=== PATIENT | male | born 1975 | race Caucasian/White ===

== ENCOUNTER 2023-08-16 11:01 | Outpatient (CLI) | payer OTHER, SELFPAY ==
--- NOTE | ~2023-08-16 | XR_ITS ---
EXAMINATION: XR abdomen/kub 1V DATE: 08/16/2023 11:22 INDICATION: Calculus of kidney. TECHNIQUE: A supine view of the abdomen on 2 radiographs was obtained. COMPARISON: CT abdomen and pelvis 04/03/2012 FINDINGS: There are no dilated loops of bowel. There is a phlebolith in right pelvis. There are 4 mm and 3 mm stones in left kidney. IMPRESSION: 1. Left kidney stones. Reviewed, dictated and finalized at location A. IMPRESSION: 1. Left kidney stones.
== END 2023-08-16 11:02 | disposition home or self-care (01) ==
LOC: ANHIMG 11:09
PROVIDERS: Visit Provider Urology
DX: N20.0 Calculus of kidney (principal)
CPT/HCPCS: 74018

== ENCOUNTER 2023-12-07 01:19 | Day surgery (SDC) | payer OTHER, SELFPAY ==
[2023-11-28 13:17] VITALS: BMI 25.0
--- NOTE | 2023-11-28 13:18 | PC.NURSE ---
Report to the Outpatient Waiting Room, entrance under the green pavilion located off [facility], at time _0600_ on date _[id number]_. Planned Procedure Time: _0730_. Time changes happen often and if your time is changed the preop area will call you the afternoon before. - You and your visitor will be asked to self-screen and do not enter if you have any COVID symptoms. - A mask is optional within the hospital at this time. Patients may have clear liquids (water, carbonated beverages, clear teas, apple juice) until 3 hours prior to surgery with a maximum of 20 ounces. - No food from midnight until time of surgery Take the following medications with a SIP of water the morning of surgery: ___None DO NOT STOP ANY OF YOUR OTHER PRESCRIPTION MEDICATIONS PRIOR TO SURGERY ?EXCEPT THE FOLLOWING Medications to discontinue per physician None Date to take last dose Please no make-up, nail latvian, hairspray, perfume, deodorant, or body powder the day of surgery. No jewelry (including any body piercings) or valuables the day of surgery, leave them at home. Please take a shower or bath the night before, or the morning of, surgery with an antibacterial soap. Wear comfortable, loose fitting clothing. - Jewelry must be removed prior to entering the operating room. Rings and piercings that are not removed may be cut off. - The hospital will not accept responsibility for valuables. - Please leave all valuables, including medications, at home the day of surgery. If you are going home after surgery, a licensed mobile lounge driver must drive you home. - NO public transportation without another adult if you receive anesthesia. - We recommend that an adult stay with you for 24 hours following discharge. - We also recommend that you do not drive, make important decision, drink alcoholic beverages, or take any drugs that were not prescribed by your health care provider for at least 24 hours after your discharge time. Follow any additional instructions given to you from your surgeon. If you or anyone in your household have experienced Covid symptoms in the past week, please notify your surgeon or the nurse liaison at the phone number below for possible testing. Telephone instructions given to _Patrick and asked if any additional questions and then verbalized understanding. Patient advised to call surgeon office or pre surgery nurse liaison [phone] if any additional questions.
--- NOTE | 2023-12-06 15:42 | P.HP_ITS ---
H&P: HPI History of Present Illness Date/Time: 12/06/23 15:42 Chief Complaint: Nasal obstruction nasal congestion septal deviation turbinate hypertrophy Narrative: and procedure planned procedure Review of Systems Review of Systems: All systems reviewed & are unremarkable except as noted in HPI and below [facility] Social History Social History Smoking status: Never smoker Alcohol intake: never Substance use: current Substance use type: marijuana Other substance usage details: Daily since age 15. Has RX Living arrangements: with family Spiritual care concerns: No Meds Home Medications and Allergies Home Medications Medication Instructions Recorded Confirmed Type No Home Medications 10/02/23 11/28/23 History Allergies Allergy/AdvReac Type Severity Reaction Status Date / Time No Known Allergies Allergy Unverified 11/28/23 13:09 Exam Narrative: septal deviation turbinate hypertrophy Assessment and Plan Assessment and plan (1) Nasal obstruction: Code(s): J34.89 - Other specified disorders of nose and nasal sinuses Status: Acute Assessment and Plan: plan OR septoplasty endoscopic assisted inferior turbinate reduction bilaterally with outfracture. Risks discussed bleeding infection damage to surrounding structures need for further procedures damage tissue structure above clavicle by myself septal perforation damage to any structure induction remains anesthesia including vocal cord paralysis. Need for further procedures. Failure to resolve symptoms. Cosmetic deformity of the nose. CSF leak per day per damage change in vision total blindness. (2) Nasal septal deviation: Code(s): J34.2 - Deviated nasal septum Status: Acute (3) Acquired deviated nasal septum: Code(s): J34.2 - Deviated nasal septum Status: Acute (4) Hypertrophy of both inferior nasal turbinates: Code(s): J34.3 - Hypertrophy of nasal turbinates Status: Acute
[2023-12-07] VITALS (12 sets, daily range): BP systolic 123–173; BP diastolic 77–127; PULSE 64–93; RESP 10–20; TEMP 36.2; O2SAT 99–100
[2023-12-07] MEDS: ACETAMINOPHEN 500 MG TABLET 1000 MG PO (06:26)
[2023-12-07] MEDS: LACTATED RINGERS 1,000 ML 30 ML IV CONT ×2 (06:30→09:30)
--- NOTE | 2023-12-07 06:57 | P.PNAN_ITS ---
Anes - Initial Pre Proc Eval Procedure: Operation Date: 12/07/23 07:30 Proposed Procedures p Bilateral Inferior Turbinate Reduction with Outfracture, - Juancho Justice MD s Endoscopic Septoplasty - Juancho Justice MD Date/Time: 12/07/23 06:57 Surgeon: Juancho Justice MD Pre Op Diagnosis: septal deviation, turbinate hypertrophy Patient Data Age: 48 Gender: M Height: 1.88 m Weight: 82.2 kg Last Vital Signs Temp 36.2 C L 12/07/23 06:12 Pulse 70 12/07/23 06:12 Resp 20 12/07/23 06:12 BP 132/104 H 12/07/23 06:20 Pulse Ox 100 12/07/23 06:12 O2 Del Method Room Air 12/07/23 06:12 Allergies Allergy/AdvReac Type Severity Reaction Status Date / Time No Known Allergies Allergy Unverified 12/07/23 06:08 Home Medications Medication Instructions Recorded Confirmed Type No Home Medications 10/02/23 12/07/23 History Patient hx anesthesia problems: none Family hx anesthesia problems: none Results Review: All pre-operative results and documents have been reviewed as part of the pre- operative evaluation. FORMERLY [facility], [facility] Surgical History Surgical History (Updated 12/07/23 @ 06:57 by Dexter Madison MD) H/O lithotripsy Social History Social History Smoking status: Never smoker Alcohol intake: never Substance use: current Substance use type: marijuana Other substance usage details: Daily since age 15. Has RX Living arrangements: with family Spiritual care concerns: No Anes - Eval Final PreProcedure Day of Procedure 12/07/23 06:57 Patient weight: normal Heart: regular rate and rhythm Lungs: clear to auscultation Airway: Mallampati scale class II Neurological: alert and oriented Last oral intake: >/= 8 hours ASA classification: II Emergent: no Anesthetic plan: proceed Anesthesia type and monitoring: general ETT and standard monitoring Results Review: All pre-operative results and documents have been reviewed as part of the pre- operative evaluation. Informed Consent: The patient's anesthetic plan and its attendant risks and benefits were discussed with the patient/family/POA. Questions were solicited and answers provided to the satisfaction of the patient/family/POA.
--- NOTE | 2023-12-07 07:19 | WPDHPUPDATE1 ---
History and Physical Update Update Date/Time: 12/07/23 07:19 History and Physical has been reviewed, including an updated exam of the patient. There are NO changes in the patient's condition. Risks, benefits, and alternatives have been discussed and questions answered. Patient agrees to proceed with procedure.
[2023-12-07] MEDS: ceFAZolin 2 GM/D5W 50 ML 2 GM/50 ML BAG IVPB (07:33)
[2023-12-07] MEDS: LIDO 1%/EPINEPHRINE 1:100,000 50 ML VIAL INFILTRATE (07:45)
[2023-12-07] MEDS: OXYMETAZOLINE HCL 0.05% NAS 15 ML BTL (*BKC) 1 SPRAY NASAL (07:46)
--- NOTE | 2023-12-07 09:49 | P.OP_ITS ---
Procedure Note - Detailed Date of Procedure 12/07/23 Pre-op Diagnosis septal deviation, turbinate hypertrophy Post-op Diagnosis Same Procedure Performed endoscopic assisted septoplasty inferior turbinate reduction with outfracture bilaterally Surgeon Juancho Justice MD Anesthesia General Indications see above Findings severely rightward deviated septum large turbinates. Excellent result postoperatively. Patient tolerated the procedure well minimal bleeding tear on the right side over spur none on the left side. Description of Procedure Patient identified consent verified preop. Patient to the operating. Time- out performed. General anesthesia induced endotracheal tube secured. Patient prepped draped position procedure confirmed 2nd time-out performed. Total 15 cc 1% lidocaine [id number] parts epinephrine checked bilateral nasal septum inferior turbinates. Amrik incision made left side. Left made with 15 blade. Left nasal septal flap elevated 7 Guinean suction. No perforation. Osteotome uti lized to cross over right nasal septal flap elevated perforation and tear over the spur. Again on the left side. Deviated septum removed Doug shot Steffen forceps Mina Guallpa forceps and osteotome. Septum watched out FloSeal placed no bleeding closed with 3 sorry for interrupted 5 0 fast gut sutures. Fifteen blade stab anteriorly so 15 blade incision 15 blade utilized to make a stab incision in the anterior portion of the inferior turbinates. Microdebrider which was a Freedom 2.5 mm utilized to perform turbinate reduction. No tears. Outfractured [place] elevator. FloSeal placed. Minimal bleeding about 10-15 cc the entire procedure. Barrios splints placed sutured anteriorly using 3-0 mattress nylon suture. No complications. I performed all dictated portions procedure care the patient back to Anesthesiology patient taken to PACU. Estimated Blood Loss 15 Drains No Packing No Pathology None sent Complications No immediate complications Condition Stable Disposition PACU [facility] Billing Surgery - Charge Forward: Surgery Billing
[2023-12-07] MEDS: fentaNYL CITRATE INJ (*CRX) 100 MCG/2 ML VIAL 25 MCG IV PUSH ×2 (09:52→10:02)
[2023-12-07] MEDS: ONDANSETRON INJ 4 MG/2 ML VIAL IV PUSH (10:20)
[2023-12-07] MEDS: oxyCODONE HCL (*CRX) 5 MG TAB IR PO (10:45)
== END 2023-12-07 11:35 | disposition home or self-care (01) ==
PROVIDERS: Visit Provider Otolaryngology
PROC: (CPT 30520; principal; 2023-12-07 07:30)
PROC: (CPT 30520; 2023-12-07 07:30)
DX: J34.2 Deviated nasal septum (principal); J34.3 Hypertrophy of nasal turbinates; F12.90 Cannabis use, unspecified, uncomplicated
CPT/HCPCS: 30520; 30140; A9270; J0690; J1100; J1170; J2250; J2405; J2704; J3010; J7050; J7120

== ENCOUNTER 2024-10-14 10:48 | Day surgery (SDC) | payer OTHER, SELFPAY ==
[2024-10-14] VITALS (13 sets, daily range): BP systolic 103–164; BP diastolic 54–112; PULSE 56–97; RESP 13–22; TEMP 36.6; O2SAT 95–100
--- NOTE | ~2024-10-14 | XR_ITS ---
EXAMINATION: XR retrograde pyelo w/stent LT DATE: 10/14/2024 16:26 INDICATION: Nephrolithiasis. Retrograde left pyelogram. TECHNIQUE: 6 fluoroscopic images of the abdomen and pelvis were obtained during procedure performed opal Adler. Radiologist was not present for the imaging or procedure. The amount of fluoroscopy t rafael used during this procedure was 0.5 minutes. Total DAP was 0.348 mGym^2. COMPARISON: CT dated 10/14/2024 FINDINGS: Images demonstrate a wire is advanced through the left ureter into the left renal collecting system. The stone at the left ureteropelvic junction can be seen along side the wires slightly lateral to the left transverse process of L3. Subsequent images demonstrate a catheter advanced to near the left ur eteropelvic junction. Contrast injection demonstrates mild left hydronephrosis. Following the initial image the left ureteral stone: Be visualized and has likely either been extracted or has refluxed in to the collecting system and is obscured by contrast. Final image demonstrates placement of a left in traureteral stent with loops formed in the left renal pelvis. IMPRESSION: 1. Stone at the left ureteropelvic junction which is not identified on the final image and has either been extracted or refluxed into the collecting system and obscured by contrast. See procedure note f or further detail. 2. Placement of a left intraureteral stent with proximal loop in expected position at the left renal pelvis. Reviewed, dictated and finalized at location A. IMPRESSION: 1. Stone at the left ureteropelvic junction which is not identified on the laurie l image and has either been extracted or refluxed into the collecting system an d obscured by contrast. See procedure note for further detail. 2. Placement of a left intraureteral stent with proximal loop in expected posit ion at the left renal pelvis.
--- NOTE | ~2024-10-14 | XR_ITS ---
EXAM: XR abdomen/kub 1V DATE: 10/14/2024 15:11 HISTORY: KID STONE SEEN ON CT . COMPARISON: 08/16/2023; CT abdomen pelvis 10/14/2024. FINDINGS: Clear lung bases. Normal bowel gas pattern. No organomegaly. 5 mm calcification over the l eft L4 transverse process, corresponding to the ureteral stone seen in the prior CT. Bilateral puncta te renal calcifications. Regional bones and soft tissues normal for age. IMPRESSION: 5 mm left ureteral stone. Bilateral nephrolithiasis. Reviewed, dictated and finalized at location K.
--- NOTE | ~2024-10-14 | CT_ITS ---
EXAMINATION: CT abdomen pelvis wo con DATE: 10/14/2024 12:15 INDICATION: Left lower quadrant and flank pain. TECHNIQUE: Computed tomography (CT) of the abdomen and pelvis was performed without intravenous contr ast. Automated exposure control and iterative reconstruction technique were employed. The dose-length product was 339.86 mGy-cm. COMPARISON: None FINDINGS: Mild discoid atelectasis in the right lower lobe. Heart size is normal. No pericardial or pleural eff usion. Liver, gallbladder, spleen, pancreas, bilateral adrenal glands are normal. Bilateral nephrolit hiasis including 5 stones the right kidney measuring up to 2-3 mm and 3 stones in the left kidney als o measuring up to 2-3 mm. There is an obstructing 4-5 lumbar stone at the proximal left ureter with m ild left hydronephrosis. No other ureteral stones. Bladder is normal. Mild diverticulosis with sigmoi d colon predominance without adjacent from trace stranding to suggest diverticulitis. There is wall t hickening in the proximal colon suspicious for colitis which could be infectious or inflammatory in e tiology. Normal appendix. No bowel obstruction. No free intraperitoneal gas or fluid. No pathological ly enlarged abdominal or pelvic lymphadenopathy. Small fat-containing umbilical hernia. 5 mm retrolis thesis L5 on S1. Severe disc height loss with degenerative endplate changes at L5-S1. IMPRESSION: 1. Bilateral nephrolithiasis with obstructing 4 to 5 mm proximal left ureteral stone with mild left h ydronephrosis. 2. Mild wall thickening in the proximal colon suggestive of colitis which could be infectious or infl ammatory in etiology. Reviewed, dictated and finalized at location A. IMPRESSION: 1. Bilateral nephrolithiasis with obstructing 4 to 5 mm proximal left ureteral stone with mild left hydronephrosis. 2. Mild wall thickening in the proximal colon suggestive of colitis which could be infectious or inflammatory in etiology.
--- OUTSIDE RECORDS SUMMARY | 2024-10-14 11:08 | XMS_ITS | Referral Summary ---
Author Organization [facility] [address] [place] Address [address] [place] [address] Care Team Providers Care Security Site Supervisor Name Role Phone No, Physician Primary Care Provider [phone] Encounters Date Type Department Care Team Description 09/26/2024 8:45 AM CDT Office Visit [facility] Orthopaedic Surgery [address] [place] [address] 1st Floor [address] [place] [phone] Dipika Mayberry NP Myofascial pain (Primary Dx) 09/17/2024 Telephone [facility] Orthopaedic Surgery [address] [place] [address] Floor [address] [place] [phone] Gretchen Ryan RMA 09/10/2024 1:28 PM CDT - 09/10/2024 11:59 PM CDT Hospital Encounter [facility] Radiology at [facility] [address] [place] [id number] Chronic periscapular pain on left side; Myofascial pain; Neck pain on left side; Chronic left-sided thoracic back pain Discharge Disposition: Discharge to home or self care 09/10/2024 1:45 PM CDT Office Visit [facility] Orthopaedic Surgery [address] [place] [address] 1st [address] [place] [phone] Dipika Mayberry NP Neck pain on left side (Primary Dx); Chronic periscapular pain on left side; Myofascial pain; Chronic left-sided thoracic back pain 09/04/2024 Telephone [facility] Orthopaedic Surgery [address] [place] [address] LoserGretchen RMA 08/15/2024 Orders Only [facility] Orthopaedic Surgery [address] 2[address] [place] [address] Loser Gretchen, RMA Neck pain on left side (Primary Dx); Myofascial pain from Last 3 Months Allergies No known active allergies Medications meloxicam (MOBIC) 15 mg tablet Take one daily with food 30 tablet 09/10/2024 Active Hospital, Clinic, or Other Facility Administered Medication Ordered Dose Route Frequency Start Date End Date Status BUPivacaine HCl (MARCAINE) 0.25 % (2.5 mg/mL) injection 4 mLIndications:Myofas cial pain 4 mL OTHER One-Time Injection 09/26/2024 09/26/2024 Ended lidocaine (XYLOCAINE) 10 mg/mL (1 %) injection 4 mLIndications:Admini stration of Local Anesthesia 4 mL One-Time Injection 09/26/2024 09/26/2024 Ended Active Problems Problem Noted Date Diagnosed Date Rotator cuff syndrome of left shoulder Tinea unguium 09/26/2024 Subdeltoid bursitis 09/26/2024 Adenomatous colon polyp 08/08/2019 Resolved Problems Problem Noted Date Diagnosed Date Resolved Date Winged scapula, left 12/14/2016 018 Scapular dyskinesis 12/14/2016 01/09/20 18 Immunizations Immunization Administration Dates Next Due Tdap 07/03/2013 Social History Tobacco Use Types Packs/Day Years Used Date Smoking Tobacco: Never Smokeless Tobacco: Never Alcohol Use Standard Drinks/Week Comments Yes 0 (1 standard drink = 0.6 oz pur e alcohol) social AUDIT-C Answer Date Recorded Q1: How often do you have a drink containing alcohol? Never 05/14/2023 Q2: How many drinks containi ng alcohol do you have on a typical day when you are drinking? Patient does not drink Q3: How often do you have si x or more drinks on one occasion? Never 05/14/2023 Personal Safety Answer Date Recorded Have you ever been in or are you currently in a harmful physical or emotional relationship or is someone making you feel afraid or unsafe? 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 on [place] [employer] Not on file Not on file Last Filed Vital Signs Vital Sign Reading Time Taken Comments Blood Pressure 138/96 04/09/2023 8:30 AM CONDENSER CLEANER Pulse 71 04/09/2023 8:30 AM CONDENSER CLEANER Temperature 36.4 C (97.5 F) 04/09/2023 7:49 AM CONDENSER CLEANER Respiratory Rate 18 04/09/2023 8:30 AM CONDENSER CLEANER Oxygen Saturation 87% 04/09/2023 8:30 AM CONDENSER CLEANER Inhaled Oxygen Concentration - - Weight 90.7 kg (200 lb) 09/10/2024 1:15 PM CDT Height 188 cm (6' 2 ) 09/10/2024 1:15 PM CDT Body Mass Index 25.68 09/10/2024 1:15 PM CDT Plan of Treatment Not on file Procedures Procedure Name Priority Date/Time Associated Diagnosis Comments VA INJECTION 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 TRIGGER POINT 3/> MUSCLES Routine 09/26/2024 8:45 AM CDT Myofascial pain VA INJECTION 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 TRIGGER POINT 3/> MUSCLES Routine 09/10/2024 1:45 PM CDT Myofascial pain XR SPINE CERVICAL COMPLETE 4 OR 5 VW Schedule Routine, Read Routine (OP Routine) 09/10/2024 1:33 PM CDT Chronic periscapular pain on left side Myofascial pain Neck pain on left side Chronic left-sided thoracic back pain HM COLONOSCOPY Routine 08/01/2019 from Last 3 Months or Most Recently Relevant to Health Maintenance Results * VA INJECTION 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 TRIGGER POINT 3/> MUSCLES (09/26/2024 8:45 AM CDT) Narrative Dipika Mayberry NP - 09/26/2024 8:45 AM CDT Dipika Mayberry NP 09/26/2024 8:55 AM Trigger Point Injection Performed by: Dipika Mayberry NP Authorized by: Dipika Mayberry NP Consent Given by: Patient Site marked: the procedure site was marked Consent obtained:: Verbal Site/side marked: Yes Indications: Myalgia and muscle spasm Location: L upper trapezius, L rhomboid and Other Other:: Left proximal latissimus dorsi Local anesthetic: Ethyl chloride spray Needle size: 25 G Number of muscles: 3 or more Medications: 4 mL BUPivacaine HCl 0.25 % (2.5 mg/mL); 4 mL lidocaine 10 mg/mL (1 %) Patient tolerance: Patient tolerated the procedure well with no immediate complications Dipika Mayberry DIGITAL MARKETING OFFICER IN CLINIC/BEDSIDE ORDERABLES Final Result * VA INJECTION 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 TRIGGER POINT 3/> MUSCLES (09/10/2024 1:45 PM CDT) Narrative Dipika Mayberry NP - 09/10/2024 1:45 PM CDT Dipika Mayberry NP 09/10/2024 3:21 PM Trigger Point Injection Performed by: Dipika Mayberry NP Authorized by: Dipika Mayberry NP Consent Given by: Patient Site marked: the procedure site was marked Consent obtained:: Verbal Site/side marked: Yes Indications: Muscle spasm Location: L upper trapezius, L levator scapulae, Other and L rotator cuff Other:: Left upper latissimus dorsi, left rhomboid Local anesthetic: Ethyl chloride spray Needle size: 25 G Number of muscles: 3 or more Medications: 5 mL BUPivacaine HCl 0.25 % (2.5 mg/mL); 5 mL lidocaine 10 mg/mL (1 %) Patient tolerance: Patient tolerated the procedure well with no immediate complications us Dipika Mayberry DIGITAL MARKETING OFFICER IN CLINIC/BEDSIDE ORDERABLES Final Result * X-ray cervical spine complete 4 or 5 vw (09/10/2024 1:33 PM CDT) Anatomical Region Laterality Modality Spine N/A Computed Radiogr aphy 09/10/2024 1:37 PM CDT Impressions 09/10/2024 1:37 PM CDT Mild to moderate multilevel cervical degenerative disc disease, most prominent at C3-C4. Electronically signed by: Dimas Sauceda MD Narrative 09/10/2024 1:37 PM CDT EXAMINATION: XR SPINE CERVICAL COMPLETE 4 OR 5 VW HISTORY: Cervical spondylosis, neck and left shoulder pain FINDINGS: Comparison dated 02/06/2023. Unchanged mild retrolisthesis of C3 on C4. This slightly improves with flexion and is unchanged with extension. Mild rightward deviation of the cervical spine. No fracture. No prevertebral soft tissue swelling. Moderate degenerative disc disease at C3-C4. Mild to moderate degenerative disc disease at C5-C7. Mild osseous central canal stenosis at C3-C4 and C5-C7. Procedure Note Dimas Sauceda MD - 09/10/2024 EXAMINATION: XR SPINE CERVICAL COMPLETE 4 OR 5 VW HISTORY: Cervical spondylosis, neck and left shoulder pain FINDINGS: Comparison dated 02/06/2023. Unchanged mild retrolisthesis of C3 on C4. This slightly improves with flexion and is unchanged with extension. Mild rightward deviation of the cervical spine. No fracture. No prevertebral soft tissue swelling. Moderate degenerative disc disease at C3-C4. Mild to moderate degenerative disc disease at C5-C7. Mild osseous central canal stenosis at C3-C4 and C5-C7. IMPRESSION: Mild to moderate multilevel cervical degenerative disc disease, most prominent at C3-C4. Electronically signed by: Dimas Sauceda MD Dipika Mayberry DIGITAL MARKETING OFFICER IMG XR PROCEDURES Final Resul t * COLONOSCOPY (08/01/2019) Colonoscopy Abnormal Historical Provider HEALTH MAINTENANCE Final Result from Last 3 Months or Most Recently Relevant to Health Maintenance Insurance [facility] ACCESS [facility] CHOICE PLUS [facility] CHOICE PLUS [facility] CHOICE PLUS Care Teams Security Site Supervisor Relationship Specialty Start Date End Date No, Physician PCP - General 05/14/23
--- OUTSIDE RECORDS SUMMARY | 2024-10-14 11:08 | XMS_ITS | Patient Health Record ---
Author Organization [facility] Address [address] [place] [address] Support Name Relationship Address Phone Micky Jacobsen Guarantor Unknown [phone] Allergies No Known Allergies Reason For Referral No Information Medications Medication SIG (Take, Route, Frequency, Duration) Notes Start Date End Date Status Ibuprofen *Pick strength-form from [employer] for eRX* Active Cephalexin 500 MG take 1 capsule (500 mg) by oral route every 12 hours for 10 days Oral 2 for 10 03/26/2017 Active Griseofulvin Ultramicrosize 250 MG take 2 tablets by oral route daily Oral 1 for 30 01/21/2018 Active Aleve 220 MG Oral Active Problems Problem Type SNOMED Code ICD Code Onset Dates Problem Status W/U Status Risk Notes Problem Shoulder Enthesopathy (726.10) Active confirmed Problem Subdeltoid bursitis (24227752) Subdeltoid bursitis (726.19) Active confirmed Problem Tinea unguium (554938311) Tinea unguium (B35.1) Active confirmed Problem Dermatophytosis (49367924) Dermatophytosis , unspecified (B35.9) Active confirmed Plan Of Treatment No Information Insurance Providers Payer Name Payer Address Payer Phone Subscriber Number Group Number Insured Name Patient Relationship to Insured Coverage Start Date Coverage End Date [employer] [address] [address] [place] [address] [id number] Delmar Micky Self - patient is the insured [employer] [address] [address] [place], [place] [id number] [phone] [id number] Micky Jacobsen Self - patient is the insured 7 [employer] [address] MAGGIE Carpio [id number] [phone] [id number] Micky Jacobsen Self - patient is the insured 9 DO NOT USE [id number] Micky Jacobsen Self - patient is the insured 7 [employer] [address] [address] [place] [address] [id number] Micky Jacobsen Self - patient is the insured [facility] [phone] [id number] Micky Jacobsen Self - patient is the insured Medical (General) History Hospitalization History Reason Date(Month/Year) kidney stone 2011
--- OUTSIDE RECORDS SUMMARY | 2024-10-14 11:08 | XMS_ITS | Clinical Summary ---
Author Organization [address] Address [address] [place] [phone] Care Team Providers Care Repair Manager Name Role Phone No, Physician Primary Care Provider [phone] Allergies No known active allergies Medications meloxicam [...] 12/14/2016 018 Scapular dyskinesis 12/14/2016 01/09/20 18 Encounters Date Type Department Care Team Description 09/26/2024 8:45 AM CDT Office Visit [facility] Orthopaedic Surgery [address] [facility] 1st Floor [address] [place] [address] Dipika Mayberry NP Myofascial pain (Primary Dx) 09/17/2024 Telephone [facility] Orthopaedic Surgery [address] [facility] 1st Floor [address] [place] [address] LoseGretchen mcbride, RMA 09/10/2024 1:45 PM CDT Office Visit [facility] Orthopaedic Surgery [address] [facility] 1st Floor [address] [place] [address] Dipika Mayberry NP Neck pain on left side (Primary Dx); Chronic periscapular pain on left side; Myofascial pain; Chronic left-sided thoracic back pain 09/10/2024 1:28 PM CDT - 09/10/2024 11:59 PM CDT Hospital Encounter [facility] Radiology at [facility] [address] [place] [address] Chronic periscapular pain on left side; Myofascial pain; Neck pain on left side; Chronic left-sided thoracic back pain Discharge Disposition: Discharge to home or self care 09/04/2024 Telephone [facility] Orthopaedic Surgery [address] [facility] 1st Floor [address] [place] [address] Loser Gretchen, RMA 08/15/2024 Orders Only [facility] Orthopaedic Surgery [address] [facility] 2nd Floor [address] [place] [address] Loser, Gretchen, RMA Neck pain on left side (Primary Dx); Myofascial pain from Last 3 Months Immunizations Immunization Administration Dates Next Due Tdap 07/03/2013 Surgical History Surgery Date Site/Laterality Comments COLONOSCOPY 06/04/2019 - 06/03/2020 KIDNEY STONE SURGERY 06/04/2012 - 06/03/2013 ablation Medical History Medical History Date Comments Kidney stones History of kidney problems Family History Medical History Relation Name Comments Coronary artery disease Father Hyperlipidemia Father No Known Problems Mother Coronary artery disease Paternal Grandfather Relation Name Status Comments Father Alive Mother Alive Paternal Grandfather Social History Tobacco Use Types Packs/Day Years [...] on file Legal Sex Male 12:39 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 Gender Identity Not on file Sexual Orientation Not on file 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 Not on file Not on file Obstetrics History Last Filed Vital Signs Vital Sign Reading Time Taken Comments Blood Pressure 138/96 04/09/2023 8:30 AM FIELD AUTOMOBILE ADJUSTER Pulse 71 04/09/2023 8:30 AM FIELD AUTOMOBILE ADJUSTER Temperature 36.4 C (97.5 F) 04/09/2023 7:49 AM FIELD AUTOMOBILE ADJUSTER Respiratory Rate 18 04/09/2023 8:30 AM FIELD AUTOMOBILE ADJUSTER Oxygen Saturation 87% 04/09/2023 8:30 AM FIELD AUTOMOBILE ADJUSTER Inhaled Oxygen Concentration - - Weight 90.7 kg (200 lb) 09/10/2024 1:15 PM CDT Height 188 cm (6' 2 ) 09/10/2024 1:15 PM CDT Body Mass Index 25.68 09/10/2024 1:15 PM CDT Plan of Treatment Health Maintenance Due Date Last Done Comments Hepatitis C Screening 1976 Hepatitis B Screening 1994 Regular Well Visit/Exam 18-64 1994 Depression Screening 01/09/2019 01/09/2018 DTaP/Tdap/Td Vaccine (2 - Td or Tdap) 07/03/2023 07/03/2013 Colon Cancer Screening-Colonoscopy 08/01/2024 08/01/2019 Influenza Vaccine (Season Ended) 2025 Colon Cancer Screening-CT Colonography Discontinued 08/01/2019 Colon Cancer Screening-DNA Stool Discontinued 08/01/19 20 Colon Cancer Screening-FIT Discontinued 08/01/2019 Colon Cancer Screening-Sigmoidoscopy Discontinued 08/01/2019 Pneumococcal vaccine <65 Aged Out No longer eligible based on patient's age to complete this topic Procedures Procedure Name Priority Date/Time Associated Diagnosis Comments [place] INJECTION SINGLE/BRICK MASON TRIGGER POINT 3/> MUSCLES Routine 09/26/2024 8:45 AM CDT Myofascial pain WI INJECTION SINGLE/BRICK MASON TRIGGER POINT 3/> MUSCLES Routine 09/10/2024 1:45 [...] Recently Relevant to Health Maintenance Results * [place] INJECTION SINGLE/BRICK MASON TRIGGER POINT 3/> MUSCLES (09/26/2024 8:45 AM CDT) Dipika Arora NP - 09/26/2024 8:45 AM CDT Dipika [...] with no immediate complications us Dipika Mayberry NP IN CLINIC/BEDSIDE ORDERABLES Final Result * [place] INJECTION SINGLE/BRICK MASON TRIGGER POINT 3/> MUSCLES (09/10/2024 1:45 PM CDT) Dipika Arora NP - 09/10/2024 1:45 PM CDT Dipika [...] well with no immediate complications Dipika Mayberry TECTONOPHYSICIST IN CLINIC/BEDSIDE ORDERABLES Final Result * X-ray [...] signed by: Dimas Sauceda MD Dipika Mayberry TECTONOPHYSICIST IMG XR PROCEDURES Final Resul t * COLONOSCOPY (08/01/2019) [facility] Signature Colonoscopy Abnormal Historical Provider HEALTH MAINTENANCE Final Result from Last 3 Months or Most Recently Relevant to Health Maintenance Insurance [facility] HMO/PPO Address: [address] [place] [address] [facility] Care Teams Repair Manager Relationship Specialty Start Date End Date No, Physician PCP - General 05/14/23
[2024-10-14] MEDS: MORPHINE SULFATE (*CRX) 4 MG/ML INJ IV PUSH (11:37)
--- NOTE | 2024-10-14 11:42 | ED_ITS ---
HPI - Abdominal Pain General Chief Complaint: Abdominal Pain Stated Complaint: severe abdominal pain Time Seen by Provider: 10/14/24 11:42 Source: patient and family Mode of arrival: ambulatory Limitations: no limitations History of Present Illness HPI narrative: 49 YEARS OLD WHITE MALE CAME WITH SUDDEN ONSET OF LEFT LOWER QUADRANT PAIN RADIATING TO LEFT TESTICLE AND LEFT FLANK AREA STARTED PRIOR TO ARRIVAL ASSOCIATED WITH NAUSEA AND VOMITING AND DIAPHORESIS AND RESTLESSNESS. HISTORY OF KIDNEY STONE. HE DENIES ANY FEVER OR CHILLS. Related Data Home Medications ?Medication ?Instructions ?Recorded ?Confirmed ?Last Taken ?Type No Home Medications 12/26/23 12/26/23 Unknown History Allergies Allergy/AdvReac Type Severity Reaction Status Date / Time No Known Allergies Allergy Verified 10/14/24 10:55 Review of Systems 2 Review of Systems: All systems reviewed & are unremarkable except as noted in HPI and below PMFSH Surgical History Surgical History H/O lithotripsy Social History Social History Smoking status: Never smoker Alcohol intake: never Substance use: current Substance use type: marijuana Other substance usage details: Daily since age 15. Has RX Living arrangements: with family Spiritual care concerns: No Exam 2 Narrative: GENERAL APPEARANCE: WELL-DEVELOPED, WELL-NOURISHED, RESTLESS SKIN: NORMAL COLOR HEAD: NORMOCEPHALIC, NONTRAUMATIC EYES: CLEAR CONJUNCTIVA ENT: OROPHARYNX NORMAL, EARS NORMAL, NOSE NORMAL NECK: SUPPLE, NONTENDER CHEST AND RESPIRATORY: AIRWAY PATENT, NO RESPIRATORY DISTRESS, NO ACCESSORY MUSCLE USE HEART: REGULAR RATE/RHYTHM ABDOMEN: SEVERE TENDERNESS LEFT LOWER QUADRANT AND LEFT FLANK. VASCULAR: NORMAL PERIPHERAL PULSES, NORMAL CAPILLARY REFILL. MUSCULOSKELETAL: NORMAL RANGE OF MOTION, NONTENDER BACK NEUROLOGIC: ALERT AND ORIENTED ?3, CORPORATE LOGISTICS MANAGER IS NORMAL TESTED, NO GROSS MOTOR DEFICIT Course Consultations Consultation #1: DR ADLER, CAME TO THE ED,. PLANNING TO TAKE THE PATIENT TO THE OR FOR STONE REMOVAL. Date: 10/14/24 Vital Signs Vital signs: Vital Signs Temperature 36.6 C 10/14/24 10:52 Pulse Rate 56 L 10/14/24 10:52 Respiratory Rate 20 10/14/24 10:52 Pulse Oximetry 100 10/14/24 10:52 Oxygen Delivery Room Air 10/14/24 10:52 Temperature 36.6 C 10/14/24 10:52 Pulse Rate 70 10/14/24 14:01 Respiratory Rate 15 10/14/24 14:01 Blood Pressure 115/75 10/14/24 14:01 Pulse Oximetry 96 10/14/24 14:01 Oxygen Delivery Room Air 10/14/24 10:52 MDM - Abdominal Pain MDM Narrative Medical decision making narrative: PATIENT CAME WITH LEFT LOWER QUADRANT PAIN LEFT FLANK VITAL SIGNS SHOWING PHYSICAL EXAM SHOWING RESTLESS PATIENT WITH SEVERE TENDERNESS LEFT LOWER QUADRANT AND LEFT FLANK DIFFERENTIAL DIAGNOSIS INCLUDE KIDNEY STONE, URINARY TRACT INFECTION, DIVERTICULITIS, CONSTIPATION BLOOD WORKUP TODAY INCLUDES CBC, CMP, LIPASE SHOWED WBC 10.2 CHLORIDE 108 OTHERWISE INSIGNIFICANT URINALYSIS SHOWED 3+ BLOOD CT ABDOMEN AND PELVIS WITHOUT CONTRAST SHOWED LEFT PROXIMAL URETER STONES 4-5 MM PATIENT STILL IN PAIN, RESTLESS, ADMIT TO HOSPITALIST, CONSULT UROLOGIST. Differential Diagnosis Differential diagnosis: Likely other ( ABOVE) Medical Records Attestation: I reviewed the patient's medical records. Lab Data Attestation: I reviewed the patient's lab results. 10/14/24 11:27 10/14/24 12:52 Labs: Lab Results 10/14/24 10/14/24 10/14/24 Range/Units 11:27 11:28 12:52 WBC 10.2 H (4.5-10.0) K/mm3 RBC 4.88 (4.6-6.20) M/mm3 Hgb 14.3 (14.0-18.0) g/dL Hct 44.2 (42.0-52.0) % MCV 90.6 (80-100) fl MCH 29.3 (26-34) pg MCHC 32.4 (32-36) g/dl RDW 12.6 (11.5-14.5) % Plt Count 185 (150-375) k/mm3 MPV 11.5 H (7.4-10.4) fl Immature Gran % (Auto) 0.3 (0-0.5) % Neut % (Auto) 51.8 (45.5-73.1) % Lymph % (Auto) 39.0 (18.3-44.2) % [place] % (Auto) 6.4 (2.6-8.5) % Eos % (Auto) 1.6 (0-4.4) % Baso % (Auto) 0.9 (0.2-1.2) % Lymph # (Auto) 3.96 H (0.9-3.2) K/mm3 [place] # (Auto) 0.7 H (0.1-0.6) K/mm3 Eos # (Auto) 0.2 (0-0.3) K/mm3 Baso # (Auto) 0.1 (0.0-0.1) K/mm3 Abs Immat Gran (auto) 0.03 (0.00-0.031) K/mm3 Absolute Neuts (auto) 5.3 (1.3-6.7) K/mm3 Absolute Nucleated RBC 0.000 (0.0-0.012) K/mm3 Nucleated RBC % 0.0 (0.0-0.2) % % Immature Plt Fraction 7.1 (0.9-11.2) % Sodium 140 (137-145) mmol/L Potassium 3.8 (3.4-5.0) mmol/L Chloride 108 H (98-107) mmol/L Carbon Dioxide 25 (22-30) mmol/L Anion Gap 7 (4-12) mmol/L BUN 16 (9-20) mg/dL Creatinine 0.84 (0.7-1.3) mg/dL Estim Creat Clear Calc 109 ml/min Estimated GFR > 60 (59 - ) Glucose 95 (65-110) mg/dL Calcium 8.4 (8.4-10.2) mg/dL Total Bilirubin 0.6 (0.2-1.3) mg/dL AST 21 (17-59) U/L ALT 15 (6-50) U/L Alkaline Phosphatase 79 (38-126) U/L Total Protein 7.0 (6.3-8.2) g/dL Albumin 3.8 (3.5-5.1) g/dL Lipase 95 (23-300) U/L Urine Color Yellow (Yellow) Urine Appearance Cloudy H (Clear) Urine pH 5.5 (5.0-9.0) Ur Specific [place] 1.021 (1.001-1.035) Urine Protein 1+ H (Negative) mg/dL Urine Glucose (UA) Negative (Negative) mg/dL Urine Ketones Trace H (Negative) mg/dL Ur Blood (Man) 3+ H (Negative) Urine Nitrate Negative (Negative) Urine Bilirubin Negative (Negative) Urine Urobilinogen 1.0 (<2.0) mg/dL Leukocyte Esterase Rfl Trace H (Negative) MARIA DE JESUS/UL Urine RBC 0-2 (0-2) /hpf Urine WBC 0-5 (0-3) /hpf Ur Squamous Epith Cells None seen (Few) /hpf Urine Bacteria None seen /hpf Urine Casts 0-2 Urine Mucus Present /lpf Imaging Data Radiologist's impression: ITS Impressions Abdomen/Pelvis CT 10/14/24 12:30 IMPRESSION: 1. Bilateral nephrolithiasis with obstructing 4 to 5 mm proximal left ureteral stone with mild left hydronephrosis. 2. Mild wall thickening in the proximal colon suggestive of colitis which could be infectious or inflammatory in etiology. Critical Care Time Critical Care Time Critical Care Time: Yes Total Critical Care Time: 30 Discharge Plan Discharge Clinical Impression: Kidney stone on left side Patient Disposition: Still a Patient Condition: Stable Patient Language: Maltese Prescriptions: No Action No Home Medications Follow-up/Referrals: UNKNOWN,DOCTOR [Primary Care Provider] -
[2024-10-14 11:43] LABS: Basophils Absolute Auto 0.1 K/mm3 (0.0-0.1); Basophils Percent Auto 0.9 % (0.2-1.2); Eosinophils Absolute Auto 0.2 K/mm3 (0-0.3); Eosinophils Percent Auto 1.6 % (0-4.4); Hematocrit 44.2 % (42.0-52.0); Hemoglobin 14.3 g/dL (14.0-18.0); Immature Granulocyte Absolute 0.03 K/mm3 (0.00-0.031); Immature Granulocyte Percent A 0.3 % (0-0.5); Immature Platelet Fraction Pct 7.1 % (0.9-11.2); Lymphocytes Absolute Auto 3.96 K/mm3 (0.9-3.2); Mean Corpuscular HGB Conc 32.4 g/dl (32-36); Mean Corpuscular Hemoglobin 29.3 pg (26-34); Mean Corpuscular Volume 90.6 fl (80-100); Mean Platelet Volume 11.5 fl (7.4-10.4); Monocytes Absolute Auto 0.7 K/mm3 (0.1-0.6); Monocytes Percent Auto 6.4 % (2.6-8.5); Neutrophils Absolute Auto 5.3 K/mm3 (1.3-6.7); Neutrophils Percent Auto 51.8 % (45.5-73.1); Platelet Count Result 185 k/mm3 (150-375); Red Blood Count 4.88 M/mm3 (4.6-6.20); Red Cell Distribution Width 12.6 % (11.5-14.5); White Blood Count 10.2 K/mm3 (4.5-10.0)
--- NOTE | 2024-10-14 11:46 | PC.NURSE ---
pt denies any pain radiating down extremities or testes, denies chest pain, sob, but does appear diaphoretic from pain. pt states pain now is going into left flank area.
[2024-10-14 11:50] LABS: Add Urine Microscopic? YES; Appearance Urine Cloudy (Clear); Bacteria Urine None Seen /hpf; Bilirubin Urine Negative (Negative); Blood Urine 3+ (Negative); Color Urine Yellow (Yellow); Glucose Urine UA Negative (Negative); Ketones Urine Trace mg/dL (Negative); Leukocyte Esterase Ur Trace LEU/UL (Negative); Mucus Urine Present /lpf; Nitrate Urine Negative (Negative); Non Pathogenic Casts 0-2; Protein Urine 1+ mg/dL (Negative); RBC Urine 0-2 /hpf (0-2); Specific Grav Ur 1.021 (1.001-1.035); Squamous Epithelial Cell Urine None Seen /hpf (Few); WBC Urine 0-5 /hpf (0-3); pH Urine 5.5 (5.0-9.0)
--- OUTSIDE RECORDS SUMMARY | 2024-10-14 11:53 | XMS_ITS | Clinical Summary ---
Author Organization [address] Address [address] [place] [address] Care Team Providers Care Interactive Media Project Manager Name Role Phone No, Physician Primary Care Provider [phone] Allergies No known active allergies Medications meloxicam [...] Description 09/26/2024 8:45 AM CDT Office Visit [facility] Orthopaedic Surgery [address] [facility] 1st Floor [address] [place] [address] Dipika Mayberry NP Myofascial pain (Primary Dx) 09/17/2024 Telephone [facility] Orthopaedic Surgery [address] [facility] 1st Floor [address] [place] [address] LoseGretchen mcbride, RMA 09/10/2024 1:45 PM CDT Office Visit [facility] Orthopaedic Surgery [address] [facility] 1st Floor [address] [place] [address] Dipika Mayberry NP Neck pain on left side (Primary Dx); Chronic periscapular pain on left side; Myofascial pain; Chronic left-sided thoracic back pain 09/10/2024 1:28 PM CDT - 09/10/2024 11:59 PM CDT Hospital Encounter [facility] Radiology at [facility] [address] [place] [address] Chronic periscapular pain on left side; Myofascial pain; Neck pain on left side; Chronic left-sided thoracic back pain Discharge Disposition: Discharge to home or self care 09/04/2024 Telephone [facility] Orthopaedic Surgery [address] [facility] 1st Floor [address] [place] [address] Loser Gretchen, RMA 08/15/2024 Orders Only [facility] Orthopaedic Surgery [address] [facility] 2nd Floor [address] [place] [address] Loser, Gretchen, RMA Neck pain [...] on file Legal Sex Male 12:39 PM LOG COOKER Gender Identity Not on file Sexual Orientation Not on file Occupation Industry Job Start Date Job End Date 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[employer] e Not on file Not on file Obstetrics History Last Filed Vital Signs Vital Sign Reading Time Taken Comments Blood Pressure 138/96 04/09/2023 8:30 AM LOG COOKER Pulse 71 04/09/2023 8:30 AM LOG COOKER Temperature 36.4 C (97.5 F) 04/09/2023 7:49 AM LOG COOKER Respiratory Rate 18 04/09/2023 8:30 AM LOG COOKER Oxygen Saturation 87% 04/09/2023 8:30 AM LOG COOKER Inhaled Oxygen Concentration - - Weight 90.7 [...] Procedure Name Priority Date/Time Associated Diagnosis Comments CT INJECTION SINGLE/COAGULATING BATH MIXER TRIGGER POINT 3/> MUSCLES Routine 09/26/2024 8:45 AM CDT Myofascial pain CT INJECTION SINGLE/COAGULATING BATH MIXER TRIGGER POINT 3/> MUSCLES Routine 09/10/2024 1:45 [...] Recently Relevant to Health Maintenance Results * CT INJECTION SINGLE/COAGULATING BATH MIXER TRIGGER POINT 3/> MUSCLES (09/26/2024 8:45 AM [...] NP IN CLINIC/BEDSIDE ORDERABLES Final Result * CT INJECTION SINGLE/COAGULATING BATH MIXER TRIGGER POINT 3/> MUSCLES (09/10/2024 1:45 PM [...] well with no immediate complications Dipika Mayberry BUSINESS SERVICES ASSISTANT IN CLINIC/BEDSIDE ORDERABLES Final Result * X-ray [...] signed by: Dimas Sauceda MD Dipika Mayberry BUSINESS SERVICES ASSISTANT IMG XR PROCEDURES Final Resul t * COLONOSCOPY (08/01/2019) [facility] Signature Colonoscopy Abnormal Historical Provider HEALTH MAINTENANCE Final Result from Last 3 Months or Most Recently Relevant to Health Maintenance Insurance [facility] OPEN [facility] HMO/PPO Address: [address] [place] [address] [facility] HMO/PPO Address: [address] [address] [place] [address] [facility] CHOICE PLUS [facility] HMO/PPO Address: [address] [address] [place] [address] [facility] HMO/PPO Address: [id number] [place] [address] [facility] CHOICE PLUS [facility]IC C[facility] HMO/PPO Address: [facility] [id number] [place] [address] Care Teams Interactive Media Project Manager Relationship Specialty Start Date End Date No, Physician PCP - General 05/14/23
--- OUTSIDE RECORDS SUMMARY | 2024-10-14 11:53 | XMS_ITS | Referral Summary ---
Author Organization [facility] [place] [place] [address] Address [address] [place] [address] Care Team Providers Care Real Estate Broker Associate Name Role Phone No, Physician Primary Care Provider [phone] Encounters Date Type Department Care Team Description 09/26/2024 8:45 AM CDT Office Visit [facility] Orthopaedic Surgery [address] [place] [address] 1st Floor [address] [place] [phone] Dipika Mayberry NP Myofascial pain (Primary Dx) 09/17/2024 Telephone [facility] Orthopaedic Surgery [address] [place] [address] Floor [address] [place] [phone] Gretchen Ryan RMA 09/10/2024 1:28 PM CDT - 09/10/2024 11:59 PM CDT Hospital Encounter [facility] Radiology at [facility] [address] [place] [address] Chronic periscapular pain on left side; Myofascial pain; Neck pain on left side; Chronic left-sided thoracic back pain Discharge Disposition: Discharge to home or self care 09/10/2024 1:45 PM CDT Office Visit [facility] Orthopaedic Surgery [address] [place] [address] 1st Floor [address] [place] [phone] Dipika Mayberry NP Neck pain on left side (Primary Dx); Chronic periscapular pain on left side; Myofascial pain; Chronic left-sided thoracic back pain 09/04/2024 Telephone [facility] Orthopaedic Surgery [address] 1st [address] [place] [address] LoserGretchen RMA 08/15/2024 Orders Only [facility] Orthopaedic Surgery [address] [facility] 2nd Floor [address] [place] [address] Loser Gretchen, RMA Neck pain on left [...] on file Legal Sex Male 12:39 PM MIDDLE STITCHER Gender Identity Not on file Sexual Orientation Not on file 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 Industry Job 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 Job 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 on file Not on file Last Filed Vital Signs Vital Sign Reading Time Taken Comments Blood Pressure 138/96 04/09/2023 8:30 AM MIDDLE STITCHER Pulse 71 04/09/2023 8:30 AM MIDDLE STITCHER Temperature 36.4 C (97.5 F) 04/09/2023 7:49 AM MIDDLE STITCHER Respiratory Rate 18 04/09/2023 8:30 AM MIDDLE STITCHER Oxygen Saturation 87% 04/09/2023 8:30 AM MIDDLE STITCHER Inhaled Oxygen Concentration - - Weight 90.7 kg (200 lb) 09/10/2024 1:15 PM CDT Height 188 cm (6' 2 ) 09/10/2024 1:15 PM CDT Body Mass Index 25.68 09/10/2024 1:15 PM CDT Plan of Treatment Not on file Procedures Procedure Name Priority Date/Time Associated Diagnosis Comments [place] INJECTION SINGLE/BUILD TECHNICIAN TRIGGER POINT 3/> MUSCLES Routine 09/26/2024 8:45 AM CDT Myofascial pain [place] INJECTION SINGLE/BUILD TECHNICIAN TRIGGER POINT 3/> MUSCLES Routine 09/10/2024 1:45 [...] Recently Relevant to Health Maintenance Results * [place] INJECTION SINGLE/BUILD TECHNICIAN TRIGGER POINT 3/> MUSCLES (09/26/2024 8:45 AM [...] well with no immediate complications Dipika Mayberry CONTROL SYSTEMS TECHNICIAN IN CLINIC/BEDSIDE ORDERABLES Final Result * [place] INJECTION SINGLE/BUILD TECHNICIAN TRIGGER POINT 3/> MUSCLES (09/10/2024 1:45 PM [...] with no immediate complications us Dipika Mayberry CONTROL SYSTEMS TECHNICIAN IN CLINIC/BEDSIDE ORDERABLES Final Result * X-ray [...] signed by: Dimas Sauceda MD Dipika Mayberry CONTROL SYSTEMS TECHNICIAN IMG XR PROCEDURES Final Resul t * COLONOSCOPY (08/01/2019) Colonoscopy Abnormal Historical Provider HEALTH MAINTENANCE Final Result from Last 3 Months or Most Recently Relevant to Health Maintenance Insurance [facility] CHOICE PLUS [facility] CHOICE PLUS [facility] CHOICE PLUS Care Teams Real Estate Broker Associate Relationship Specialty Start Date End Date No, Physician PCP - General 05/14/23
[2024-10-14] MEDS: HYDROmorphone HCL INJ (*CRX) 2 MG/ML VIAL 0.5 MG IV PUSH (12:04)
[2024-10-14] MEDS: ONDANSETRON INJ 4 MG/2 ML VIAL IV PUSH ×2 (12:04→17:40)
[2024-10-14] MEDS: TAMSULOSIN HCL 0.4 MG CAPSULE PO (12:09)
[2024-10-14] MEDS: SODIUM CHLORIDE 0.9% IV 1,000 ML 999 ML IV CONT (12:09)
[2024-10-14 13:18] LABS: Alanine Aminotransferase 15 U/L (6-50); Albumin Level 3.8 g/dL (3.5-5.1); Alkaline Phosphatase 79 U/L (38-126); Anion Gap 7 mmol/L (4-12); Aspartate Amino Transferase 21 U/L (17-59); Bilirubin,Total 0.6 mg/dL (0.2-1.3); Blood Urea Nitrogen 16 mg/dL (9-20); Calcium 8.4 mg/dL (8.4-10.2); Carbon Dioxide 25 mmol/L (22-30); Chloride 108 mmol/L (98-107); Estimated CRCL calculation 109 ml/min; Estimated Glomerular Filt Rate > 60; Glucose 95 mg/dL (65-110); Lipase 95 U/L (23-300); Potassium 3.8 mmol/L (3.4-5.0); Sodium 140 mmol/L (137-145)
--- NOTE | 2024-10-14 15:22 | P.HP_ITS ---
H&P: HPI History of Present Illness Date/Time: 10/14/24 15:22 Chief Complaint: 5 mm proximal left ureteral calculus with colic Narrative: 49-year-old male who presented to the emergency room with left flank pain r adiating to his left groin. CT scan revealed a 5 mm left proximal stone with mild hydronephrosis. He has taken quite a bit of narcotics here. Stone is poorly visible on the KUB due to a lot of bowel gas and stool at this time. Review of Systems Review of Systems: All systems reviewed & are unremarkable except as noted in HPI and below [facility] Surgical History Surgical History H/O lithotripsy Social History Social History Smoking status: Never smoker Alcohol intake: never Substance use: current Substance use type: marijuana Other substance usage details: Daily since age 15. Has RX Living arrangements: with family Spiritual care concerns: No Meds Home Medications and Allergies Home Medications ?Medication ?Instructions ?Recorded ?Confirmed ?Type No Home Medications 12/26/23 12/26/23 History Allergies Allergy/AdvReac Type Severity Reaction Status Date / Time No Known Allergies Allergy Verified 10/14/24 10:55 Vital Signs Vital Signs - 24 hr 10/14/24 10:52 10/14/24 11:33 10/14/24 13:31 Temperature 36.6 C Pulse Rate 56 L 81 76 Respiratory Rate 20 22 H 16 Blood Pressure 112/75 Pulse Oximetry 100 100 96 Oxygen Delivery Room Air 10/14/24 13:32 10/14/24 13:46 10/14/24 14:01 Temperature Pulse Rate 77 82 70 Respiratory Rate 16 18 15 Blood Pressure 116/73 115/75 Pulse Oximetry 95 96 96 Oxygen Delivery Exam Const: General: cooperative Resp: Effort & Inspection: normal respiratory effort Cardio: Rate: regular rate Rhythm: regular rhythm H&P: Results Labs Labs: Short CBC 10/14/24 Range/Units 11:27 WBC 10.2 H (4.5-10.0) K/mm3 Hgb 14.3 (14.0-18.0) g/dL Hct 44.2 (42.0-52.0) % Plt Count 185 (150-375) k/mm3 BMP 10/14/24 12:52 Sodium 140 Potassium 3.8 Chloride 108 H Carbon Dioxide 25 BUN 16 Creatinine 0.84 Glucose 95 Calcium 8.4 Liver Function 10/14/24 Range/Units 12:52 Total Bilirubin 0.6 (0.2-1.3) mg/dL AST 21 (17-59) U/L ALT 15 (6-50) U/L Alkaline Phosphatase 79 (38-126) U/L Albumin 3.8 (3.5-5.1) g/dL Urine 10/14/24 Range/Units 11:28 Urine Color Yellow (Yellow) Urine Appearance Cloudy H (Clear) Urine pH 5.5 (5.0-9.0) Ur Specific [place] 1.021 (1.001-1.035) Urine Protein 1+ H (Negative) mg/dL Urine Glucose (UA) Negative (Negative) mg/dL Assessment and Plan Assessment and plan (1) Left ureteral calculus: Code(s): N20.1 - Calculus of ureter Status: Acute Assessment and Plan: Given the heavy need for are caught excel slightly elevated white count and mild leukocytes in the urine will proceed with a cysto left retrograde left stent place and at the minimum today. If ureteral scope easily is accessible may consider stone retrieval with laser.
--- OUTSIDE RECORDS SUMMARY | 2024-10-14 15:25 | XMS_ITS | Clinical Summary ---
Author Organization [address] Address [address] [place] [phone] Care Team Providers Care Pneumatic Tool Repairer Name Role Phone No, Physician Primary Care Provider Allergies No known active allergies Medications meloxicam [...] Description 09/26/2024 8:45 AM CDT Office Visit [facility] Orthopaedic Surgery [address] [facility] 1st Floor [address] [place] [address] Dipika Mayberry NP Myofascial pain (Primary Dx) 09/17/2024 Telephone [facility] Orthopaedic Surgery [address] [facility] 1st Floor [address] [place] [address] LoseGretchen mcbride, RMA 09/10/2024 1:45 PM CDT Office Visit [facility] Orthopaedic Surgery [address] [facility] 1st Floor [address] [place] [address] Dipika Mayberry NP Neck pain on left side (Primary Dx); Chronic periscapular pain on left side; Myofascial pain; Chronic left-sided thoracic back pain 09/10/2024 1:28 PM CDT - 09/10/2024 11:59 PM CDT Hospital Encounter [facility] Radiology at [facility] [address] [place] [address] Chronic periscapular pain on left side; Myofascial pain; Neck pain on left side; Chronic left-sided thoracic back pain Discharge Disposition: Discharge to home or self care 09/04/2024 Telephone [facility] Orthopaedic Surgery [address] [facility] 1st Floor [address] [place] [address] Loser Gretchen, RMA 08/15/2024 Orders Only [facility] Orthopaedic Surgery [address] [place] [facility] 2nd Floor [address] [place] [address] Loser, Gretchen, RMA Neck pain [...] on file Legal Sex Male 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 Gender Identity Not on file Sexual Orientation Not on file Occupation Industry Job Start Date Job End Date 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 Not on file Not on file Obstetrics History Last Filed Vital Signs Vital Sign Reading Time Taken Comments Blood Pressure 138/96 04/09/2023 8:30 AM GLUER MACHINE SETUP OPERATOR Pulse 71 04/09/2023 8:30 AM GLUER MACHINE SETUP OPERATOR Temperature 36.4 C (97.5 F) 04/09/2023 7:49 AM GLUER MACHINE SETUP OPERATOR Respiratory Rate 18 04/09/2023 8:30 AM GLUER MACHINE SETUP OPERATOR Oxygen Saturation 87% 04/09/2023 8:30 AM GLUER MACHINE SETUP OPERATOR Inhaled Oxygen Concentration - - Weight 90.7 [...] Procedure Name Priority Date/Time Associated Diagnosis Comments [place] INJECTION SINGLE/SUPERVISOR HAND SILVERING TRIGGER POINT 3/> MUSCLES Routine 09/26/2024 8:45 AM CDT Myofascial pain [place] INJECTION SINGLE/SUPERVISOR HAND SILVERING TRIGGER POINT 3/> MUSCLES Routine 09/10/2024 1:45 [...] Recently Relevant to Health Maintenance Results * [place] INJECTION SINGLE/SUPERVISOR HAND SILVERING TRIGGER POINT 3/> MUSCLES (09/26/2024 8:45 AM [...] NP IN CLINIC/BEDSIDE ORDERABLES Final Result * [place] INJECTION SINGLE/SUPERVISOR HAND SILVERING TRIGGER POINT 3/> MUSCLES (09/10/2024 1:45 PM [...] well with no immediate complications Dipika Mayberry WASTE OIL PUMPER IN CLINIC/BEDSIDE ORDERABLES Final Result * X-ray [...] signed by: Dimas Sauceda MD Dipika Mayberry WASTE OIL PUMPER IMG XR PROCEDURES Final Resul t * COLONOSCOPY (08/01/2019) [facility] Signature Colonoscopy Abnormal Historical Provider HEALTH MAINTENANCE Final Result from Last 3 Months or Most Recently Relevant to Health Maintenance Insurance [facility] OPEN ACCESS [facility] CHOICE PLUS [facility] CHOICE PLUS [facility] CHOICE PLUS Care Teams Pneumatic Tool Repairer Relationship Specialty Start Date End Date No, Physician PCP - General 05/14/23
--- OUTSIDE RECORDS SUMMARY | 2024-10-14 15:25 | XMS_ITS | Referral Summary ---
Author Organization [facility] [address] [place] Address [address] [place] [address] Care Team Providers Care Television News Photographer Name Role Phone No, Physician Primary Care Provider [phone] Encounters Date Type Department Care Team Description 09/26/2024 8:45 AM CDT Office Visit [facility] Orthopaedic Surgery [address] [place] [address] 1st Floor [address] [place] [phone] Dipika Mayberry NP Myofascial pain (Primary Dx) 09/17/2024 Telephone [facility] Orthopaedic Surgery [address] [place] [address] Floor [address] [place] [phone] Gretchen Ryan RMA 09/10/2024 1:28 PM CDT - 09/10/2024 11:59 PM CDT Hospital Encounter [facility] Radiology at [facility] [address] [place] [phone] Chronic periscapular pain on left side; Myofascial pain; Neck pain on left side; Chronic left-sided thoracic back pain Discharge Disposition: Discharge to home or self care 09/10/2024 1:45 PM CDT Office Visit [facility] Orthopaedic Surgery [address] [place] [address] 1st [address] [place] [phone] Dipika Mayberry NP Neck pain on left side (Primary Dx); Chronic periscapular pain on left side; Myofascial pain; Chronic left-sided thoracic back pain 09/04/2024 Telephone [facility] Orthopaedic Surgery [address] 1st [address] [place] [address] LoserGretchen RMA 08/15/2024 Orders Only [facility] Orthopaedic Surgery [address] [facility] 2nd Floor [address] [place] [address] Loser Gretchen, RMA Neck pain on left [...] on file Legal 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 Gender Identity Not on file Sexual Orientation Not on file Occupation Industry Job Start Date Job End Date 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 Not on file Not on file Last Filed Vital Signs Vital Sign Reading Time Taken Comments Blood Pressure 138/96 04/09/2023 8:30 AM SUPERVISOR BREW HOUSE Pulse 71 04/09/2023 8:30 AM SUPERVISOR BREW HOUSE Temperature 36.4 C (97.5 F) 04/09/2023 7:49 AM SUPERVISOR BREW HOUSE Respiratory Rate 18 04/09/2023 8:30 AM SUPERVISOR BREW HOUSE Oxygen Saturation 87% 04/09/2023 8:30 AM SUPERVISOR BREW HOUSE Inhaled Oxygen Concentration - - Weight 90.7 kg (200 lb) 09/10/2024 1:15 PM CDT Height 188 cm (6' 2 ) 09/10/2024 1:15 PM CDT Body Mass Index 25.68 09/10/2024 1:15 PM CDT Plan of Treatment Not on file Procedures Procedure Name Priority Date/Time Associated Diagnosis Comments OR INJECTION SINGLE/LOOM WINDER TENDER TRIGGER POINT 3/> MUSCLES Routine 09/26/2024 8:45 AM CDT Myofascial pain OR INJECTION SINGLE/LOOM WINDER TENDER TRIGGER POINT 3/> MUSCLES Routine 09/10/2024 1:45 [...] Recently Relevant to Health Maintenance Results * OR INJECTION SINGLE/LOOM WINDER TENDER TRIGGER POINT 3/> MUSCLES (09/26/2024 8:45 AM [...] well with no immediate complications Dipika Mayberry MARINE SERVICE STATION ATTENDANT IN CLINIC/BEDSIDE ORDERABLES Final Result * OR INJECTION SINGLE/LOOM WINDER TENDER TRIGGER POINT 3/> MUSCLES (09/10/2024 1:45 PM [...] with no immediate complications us Dipika Mayberry MARINE SERVICE STATION ATTENDANT IN CLINIC/BEDSIDE ORDERABLES Final Result * X-ray [...] signed by: Dimas Sauceda MD Dipika Mayberry MARINE SERVICE STATION ATTENDANT IMG XR PROCEDURES Final Resul t * COLONOSCOPY (08/01/2019) Colonoscopy Abnormal Historical Provider HEALTH MAINTENANCE Final Result from Last 3 Months or Most Recently Relevant to Health Maintenance Insurance [facility] OPEN ACCESS [facility] HMO/PPO Address: [address] [address] [place] [address] [facility] CHOICE PLUS [facility] HMO/PPO Address: [address] [address] [place] [address] [facility] CHOICE PLUS [facility] HMO/PPO Address: [address] [address] [place] [address] [facility] CHOICE PLUS [facility] HMO/PPO Address: [address] [address] [place] [address] Care Teams Television News Photographer Relationship Specialty Start Date End Date No, Physician PCP - General 05/14/23
--- NOTE | 2024-10-14 15:26 | WPDHPUPDATE1 ---
History and Physical Update Update Date/Time: 10/14/24 15:26 History and Physical has been reviewed, including an updated exam of the patient. There are NO changes in the patient's condition. Risks, benefits, and alternatives have been discussed and questions answered. Patient agrees to proceed with procedure. Proceed with cystoscopy, left retrograde, left ureteral stent placement, possible ureteroscopy with stone extraction laser
--- NOTE | 2024-10-14 15:41 | WPDANESEPPF ---
Anes - Initial Pre Proc Eval Procedure: Operation Date: 10/14/24 16:00 Proposed Procedures p Cystoscopy, Left Retrograde Pyelogram, Left Stent Placement, Possible Left Ureteroscopy, Possible Left Stone Extraction, Possible Holmium Laser - Bryce Adler MD Date/Time: 10/14/24 15:41 Surgeon: Bryce Adler MD Pre Op Diagnosis: severe abdominal pain Patient Data Age: 49 Gender: M Height: 1.88 m Weight: 85.9 kg Last Vital Signs Temp 36.6 C 10/14/24 10:52 Pulse 70 10/14/24 14:01 Resp 15 10/14/24 14:01 BP 115/75 10/14/24 14:01 Pulse Ox 96 10/14/24 14:01 O2 Del Method Room Air 10/14/24 10:52 Allergies Allergy/AdvReac Type Severity Reaction Status Date / Time No Known Allergies Allergy Verified 10/14/24 10:55 Home Medications ?Medication ?Instructions ?Recorded ?Confirmed ?Type No Home Medications 12/26/23 12/26/23 History Laboratory Tests 10/14/24 10/14/24 10/14/24 11:27 11:28 12:52 WBC 10.2 H K/mm3 (4.5-10.0) RBC 4.88 M/mm3 (4.6-6.20) Hgb 14.3 g/dL (14.0-18.0) Hct 44.2 % (42.0-52.0) MCV 90.6 fl (80-100) MCH 29.3 pg (26-34) MCHC 32.4 g/dl (32-36) RDW 12.6 % (11.5-14.5) Plt Count 185 k/mm3 (150-375) MPV 11.5 H fl (7.4-10.4) Immature Gran % (Auto) 0.3 % (0-0.5) Neut % (Auto) 51.8 % (45.5-73.1) Lymph % (Auto) 39.0 % (18.3-44.2) [place] % (Auto) 6.4 % (2.6-8.5) Eos % (Auto) 1.6 % (0-4.4) Baso % (Auto) 0.9 % (0.2-1.2) Lymph # (Auto) 3.96 H K/mm3 (0.9-3.2) [place]cock # (Auto) 0.7 H K/mm3 (0.1-0.6) Eos # (Auto) 0.2 K/mm3 (0-0.3) Baso # (Auto) 0.1 K/mm3 (0.0-0.1) Abs Immat Gran (auto) 0.03 K/mm3 (0.00-0.031) Absolute Neuts (auto) 5.3 K/mm3 (1.3-6.7) Absolute Nucleated RBC 0.000 K/mm3 (0.0-0.012) Nucleated RBC % 0.0 % (0.0-0.2) % Immature Plt Fraction 7.1 % (0.9-11.2) Sodium 140 mmol/L (137-145) Potassium 3.8 mmol/L (3.4-5.0) Chloride 108 H mmol/L (98-107) Carbon Dioxide 25 mmol/L (22-30) Anion Gap 7 mmol/L (4-12) BUN 16 mg/dL (9-20) Creatinine 0.84 mg/dL (0.7-1.3) Estim Creat Clear Calc 109 ml/min Estimated GFR > 60 (59 - ) Glucose 95 mg/dL (65-110) Calcium 8.4 mg/dL (8.4-10.2) Total Bilirubin 0.6 mg/dL (0.2-1.3) AST 21 U/L (17-59) ALT 15 U/L (6-50) Alkaline Phosphatase 79 U/L (38-126) Total Protein 7.0 g/dL (6.3-8.2) Albumin 3.8 g/dL (3.5-5.1) Lipase 95 U/L (23-300) Urine Color Yellow (Yellow) Urine Appearance Cloudy H (Clear) Urine pH 5.5 (5.0-9.0) Ur Specific [place] 1.021 (1.001-1.035) Urine Protein 1+ H mg/dL (Negative) Urine Glucose (UA) Negative mg/dL (Negative) Urine Ketones Trace H mg/dL (Negative) Ur Blood (Man) 3+ H (Negative) Urine Nitrate Negative (Negative) Urine Bilirubin Negative (Negative) Urine Urobilinogen 1.0 mg/dL (<2.0) Leukocyte Esterase Rfl Trace H MARIA DE JESUS/UL (Negative) Urine RBC 0-2 /hpf (0-2) Urine WBC 0-5 /hpf (0-3) Ur Squamous Epith Cells None seen /hpf (Few) Urine Bacteria None seen /hpf Urine Casts 0-2 Urine Mucus Present /lpf Patient hx anesthesia problems: none Family hx anesthesia problems: none Results Review: All pre-operative results and documents have been reviewed as part of the pre-operative evaluation. [facility] Surgical History Surgical History H/O lithotripsy Social History Social History Smoking status: Never smoker Alcohol intake: never Substance use: current Substance use type: marijuana Other substance usage details: Daily since age 15. Has RX Living arrangements: with family Spiritual care concerns: No Anes - Eval Final PreProcedure Day of Procedure 10/14/24 15:41 Patient weight: normal Heart: regular rate and rhythm Lungs: clear to auscultation Airway: Mallampati scale class II Neurological: alert and oriented Last oral intake: >/= 8 hours ASA classification: II Emergent: yes Anesthetic plan: proceed Anesthesia type and monitoring: general LMA and standard monitoring Results Review: All pre-operative results and documents have been reviewed as part of the pre-operative evaluation. Informed Consent: The patient's anesthetic plan and its attendant risks and benefits were discussed with the patient/family/POA. Questions were solicited and answers provided to the satisfaction of the patient/family/POA.
[2024-10-14] MEDS: LIDOCAINE 2% GEL UROJET 10 ML PKG MUCOUS MEM (16:00)
--- NOTE | 2024-10-14 16:22 | W.PM.PROC2 ---
Procedure Note - Detailed Date of Procedure 10/14/24 Pre-op Diagnosis Left ureteral calculus 5 mm Post-op Diagnosis Same Procedure Performed Cystoscopy, left retrograde, left ureteroscopy with laser, stone extraction, stent placement 4.8 Panamanian contour Surgeon Bryce Adler MD Anesthesia General Description of Procedure Patient was taken to the operative suite correctly identified. Once anesthesia was obtained was placed in dorsal lithotomy position and prepped and draped usual sterile fashion. Twenty-two Panamanian scope inserted in the bladder there were no tumors noted. Left ureteral orifice was cannulated with a guidewire. I dilated the orifice with an 8/10 dilator. A 2nd wire was placed. Mini flexible ureteral scope was then inserted up to the impacted stone in the proximal ureter. It was too large to retrieved in 1 piece. He also had slight narrowing of his ureter in the mid ureter. Using a 200 micron fiber I lasered the stone. One of the fragments went up into the kidney. I then advanced a ureteral scope in dusted the stone. One of the fragments were retrieved and sent for analysis. Pyelogram was performed to confirm placement of the stent. 4.8 Panamanian contour stent was then placed with the proximal end coiled in the renal pelvis and the distal end in the bladder. Bladder was drained. 2% viscous lidocaine was inserted into the urethra patient is taken recovery stable condition. He will follow-up in 1 week for stent removal. This completes dictation. Please send a copy of op note to my office. Estimated Blood Loss 0 Drains Yes Packing No Pathology Yes Complications No immediate complications Condition Stable Disposition PACU
[2024-10-14] MEDS: LACTATED RINGERS 1,000 ML 30 ML IV CONT (16:25)
[2024-10-14] MEDS: fentaNYL CITRATE INJ (*CRX) 100 MCG/2 ML VIAL 25 MCG IV PUSH ×6 (17:10→17:40)
[2024-10-14] MEDS: oxyCODONE HCL (*CRX) 5 MG TAB IR PO (17:57)
== END 2024-10-14 18:23 | disposition home or self-care (01) ==
LOC: ANHED 15:22 → ANHSURGERY 15:23
PROVIDERS: Emergency Provider Emergency Medicine; Visit Provider Urology
PROC: (CPT 52352; principal; 2024-10-14 16:00)
DX: N13.2 Hydronephrosis with renal and ureteral calculous obstruction (principal); F12.90 Cannabis use, unspecified, uncomplicated
CPT/HCPCS: 52356; 36415; 74018; 74176; 74420; 80053; 81001; 82365; 83690; 85025; 85055; 88300; 96361; 96365; 96375; 96376; 99285; A9270; C1769; C2617; J0696; J1171; J2003; J2250; J2270; J2405; J2704; J3010; J7030; J7120; Q9966